=== PATIENT | male | born 1995 | race Hispanic/Latino ===

== ENCOUNTER 2020-12-19 18:00 | Emergency (ER) | payer SELFPAY ==
--- NOTE | 2020-12-19 21:07 | ER ---
Nurse's Notes [facility] Name: Juan Blandon Age: 25 yrs Sex: Male : 1995 Arrival Date: 12/19/2020 Time: 18:01 Bed 6 Private MD: Diagnosis: Bronchitis, not specified as acute or chronic;Acute upper respiratory infection, unspecified;Other specified fever Presentation: 12/19 19:46 Chief complaint: Patient states: Cough (dry) and sore throat began yesterday. Denies vg1 fever, NV. States had diarrhea yesterday. Also states Covid +. Coronavirus screen: Client denies travel out of the [place] in the last 14 days. Client presents with at least one sign or symptom that may indicate coronavirus-19. Standard/surgical mask placed on the client. Ebola Screen: Patient negative for fever greater than or equal to 101.5 degrees Fahrenheit, and additional compatible Ebola Virus Disease symptoms. Initial Sepsis Screen: Does the patient meet any 2 criteria? No. Patient's initial sepsis screen is negative. Does the patient have a suspected source of infection? No. Patient's initial sepsis screen is negative. Risk Assessment: Do you want to hurt yourself or someone else? Patient reports no desire to harm self or others. Onset of symptoms was December 18, 2020. 19:46 Method Of Arrival: Ambulatory vg 19:46 Acuity: MARLENE 4 vg1 Triage Assessment: 19:49 General: Appears in no apparent distress. comfortable, Behavior is calm, cooperative. vg1 Pain: Denies pain. EENT: Throat is reddened. Historical: - Allergies: 19:49 No Known Allergies; vg1 - Home Meds: 19:49 None [Active]; vg1 - PMHx: 19:49 None; vg1 - PSHx: 19:49 Tonsillectomy; vg1 - Immunization history:: Adult Immunizations up to date. - Social history:: Smoking status: Patient denies any tobacco usage or history of. Screenin:56 Abuse screen: Denies threats or abuse. Nutritional screening: No deficits noted. vg1 Tuberculosis screening: No symptoms or risk factors identified. Fall Risk No fall in past 12 months (0 pts). No secondary diagnosis (0 pts). No IV (0 pts). Ambulatory Aid- None/Bed Rest/Nurse Assist (0 pts). Gait- Normal/Bed Rest/Wheelchair (0 pts) Mental Status- Oriented to own ability (0 pts). Total Alvarez Fall Scale indicates No Risk (0-24 pts). Assessment: 19:56 Respiratory: Respiratory effort is. vg1 20:30 General: Appears in no apparent distress. comfortable, Behavior is calm, cooperative, jb4 appropriate for age. Pain: Denies pain. Neuro: Level of Consciousness is awake, alert, obeys commands, Oriented to time, situation. Cardiovascular: Patient's skin is warm and dry. Respiratory: Airway is patent Respiratory effort is even, unlabored, Respiratory pattern is regular, symmetrical. GI: No signs and/or symptoms were reported involving the gastrointestinal system. : No signs and/or symptoms were reported regarding the genitourinary system. EENT: No signs and/or symptoms were reported regarding the EENT system. Derm: Skin is intact, Skin is pink, warm \T\ dry. Musculoskeletal: Circulation, motion, and sensation intact. Range of motion: intact in all extremities. 21:34 Reassessment: Patient and/or family updated on plan of care and expected duration. Pain ea level reassessed. Patient is alert, oriented x 3, equal unlabored respirations, skin warm/dry/pink. Discharge instruction given to patient. Verbalized the understanding of instruction. [id number]. Vital Signs: 19:46 Pulse 105; Resp 18; Temp 97.7; Pulse Ox 100% ; Weight 117.93 kg; Height 5 ft. 9 in. vg1 (175.26 cm); Pain 0/10; 19:46 Body Mass Index 38.39 (117.93 kg, 175.26 cm) vg1 ED Course: 18:01 Patient arrived in ED. mr 19:49 Triage completed. vg1 19:56 Arm band placed on Patient placed in waiting room, Patient notified of wait time. vg1 19:56 COVID swab sent to lab. Flu and/or RSV swab sent to lab. Strep swab sent to lab. vg1 20:26 Parker Ochoa MD is Attending Physician. [facility] 20:28 Dalton Patrick RN is Primary Nurse. jb4 21:30 No provider procedures requiring assistance completed. Patient did not have IV access jb4 during this emergency room visit. Administered Medications: 21:30 Drug: Rocephin (cefTRIAXone) 1 grams Route: IM; Site: right deltoid; jb4 21:30 Follow up: Response: Medication administered at discharge. jb4 21:30 Drug: Zithromax (azithromycin) 500 mg Route: PO; jb4 21:30 Follow up: Response: Medication administered at discharge. jb4 Outcome: 21:06 Discharge ordered by . trenton 21:35 Discharged to home ambulatory, with family. herminio 21:35 Condition: stable 21:35 Discharge instructions given to patient, Instructed on discharge instructions, follow up and referral plans. medication usage, Demonstrated understanding of instructions, follow-up care, medications, Prescriptions given X 3. 21:35 Patient left the ED. ea Signatures: Parker Ochoa MD MD cha Rivera, Mary mr Bryson, James, RN RN jb4 Susan Carr, RN Kayley Tadeo ea RN RN vg1
--- NOTE | 2020-12-19 21:07 | EDPHYS ---
Physician Documentation [facility] Name: Juan Blandon Age: 25 yrs Sex: Male : 1995 Arrival Date: 12/19/2020 Time: 18:01 Bed 6 Private MD: ED Physician Parker Ochoa HPI: 12/19 20:58 This 25 yrs old Male presents to ER via Ambulatory with complaints of Cough, trenton Sore Throat. 20:58 The patient or guardian reports airway noise, cough, described as mild. Onset: The trenton symptoms/episode began/occurred 2 day(s) ago. Severity of symptoms: At their worst the symptoms were mild, in the emergency department the symptoms are unchanged. Modifying factors: The symptoms are alleviated by nothing. Associated signs and symptoms: The patient has no apparent associated signs or symptoms. The patient has not experienced similar symptoms in the past. Historical: - Allergies: 19:49 No Known Allergies; vg1 - Home Meds: 19:49 None [Active]; vg1 - PMHx: 19:49 None; vg1 - PSHx: 19:49 Tonsillectomy; vg1 - Immunization history:: Adult Immunizations up to date. - Social history:: Smoking status: Patient denies any tobacco usage or history of. ROS: 21:01 Constitutional: Negative for fever, chills, and weight loss, Eyes: Negative for injury, trenton pain, redness, and discharge, ENT: Negative for injury, pain, and discharge, Neck: Negative for injury, pain, and swelling, Cardiovascular: Negative for chest pain, palpitations, and edema, Abdomen/GI: Negative for abdominal pain, nausea, vomiting, diarrhea, and constipation, Back: Negative for injury and pain, : Negative for injury, bleeding, discharge, and swelling, MS/Extremity: Negative for injury and deformity, Skin: Negative for injury, rash, and discoloration, Neuro: Negative for headache, weakness, numbness, tingling, and seizure, Psych: Negative for depression, anxiety, suicide ideation, homicidal ideation, and hallucinations, Allergy/Immunology: Negative for hives, rash, and allergies, Endocrine: Negative for neck swelling, polydipsia, polyuria, polyphagia, and marked weight changes, Hematologic/Lymphatic: Negative for swollen nodes, abnormal bleeding, and unusual bruising. 21:01 Respiratory: Positive for cough, with no reported sputum. Exam: 21:01 Constitutional: This is a well developed, well nourished patient who is awake, alert, trenton and in no acute distress. Head/Face: Normocephalic, atraumatic. Eyes: Pupils equal round and reactive to light, extra-ocular motions intact. Lids and lashes normal. Conjunctiva and sclera are non-icteric and not injected. Cornea within normal limits. Periorbital areas with no swelling, redness, or edema. ENT: Nares patent. No nasal discharge, no septal abnormalities noted. Tympanic membranes are normal and external auditory canals are clear. Oropharynx with no redness, swelling, or masses, exudates, or evidence of obstruction, uvula midline. Mucous membranes moist. Neck: Trachea midline, no thyromegaly or masses palpated, and no cervical lymphadenopathy. Supple, full range of motion without nuchal rigidity, or vertebral point tenderness. No Meningismus. Chest/axilla: Normal chest wall appearance and motion. Nontender with no deformity. No lesions are appreciated. Cardiovascular: Regular rate and rhythm with a normal S1 and S2. No gallops, murmurs, or rubs. Normal PMI, no JVD. No pulse deficits. Respiratory: Lungs have equal breath sounds bilaterally, clear to auscultation and percussion. No rales, rhonchi or wheezes noted. No increased work of breathing, no retractions or nasal flaring. Abdomen/GI: Soft, non-tender, with normal bowel sounds. No distension or tympany. No guarding or rebound. No evidence of tenderness throughout. Back: No spinal tenderness. No costovertebral tenderness. Full range of motion. Skin: Warm, dry with normal turgor. Normal color with no rashes, no lesions, and no evidence of cellulitis. MS/ Extremity: Pulses equal, no cyanosis. Neurovascular intact. Full, normal range of motion. Neuro: Awake and alert, GCS 15, oriented to person, place, time, and situation. Cranial nerves II-XII grossly intact. Motor strength 5/5 in all extremities. Sensory grossly intact. Cerebellar exam normal. Normal gait. Psych: Awake, alert, with orientation to person, place and time. Behavior, mood, and affect are within normal limits. Vital Signs: 19:46 Pulse 105; Resp 18; Temp 97.7; Pulse Ox 100% ; Weight 117.93 kg; Height 5 ft. 9 in. vg1 (175.26 cm); Pain 0/10; 19:46 Body Mass Index 38.39 (117.93 kg, 175.26 cm) vg1 MDM: 20:26 Patient medically screened. [facility] 21:03 Differential diagnosis: bronchitis, flu, URI. Antibiotic administration: The patient is trenton discharged and will get outpatient antibiotics, Zithromax. Differential Diagnosis: Bronchitis Influenza Upper Respiratory Infection Sinusitis Pharyngitis Viral Syndrome Pneumonia. Data reviewed: vital signs, nurses notes. Data interpreted: roll filler: not applicable for this patient encounter. rate is 105 beats/min, rhythm is regular, Pulse oximetry: is not applicable for this patient encounter. Counseling: I had a detailed discussion with the patient and/or guardian regarding: the historical points, exam findings, and any diagnostic results supporting the discharge/admit diagnosis, lab results, radiology results, the need for outpatient follow up, for definitive care, a family practitioner. 12/19 19:52 Order name: Strep vg1 12/19 19:52 Order name: Flu vg1 Administered Medications: 21:30 Drug: Rocephin (cefTRIAXone) 1 grams Route: IM; Site: right deltoid; 4 21:30 Follow up: Response: Medication administered at discharge. [facility] 21:30 Drug: Zithromax (azithromycin) 500 mg Route: PO; jb4 21:30 Follow up: Response: Medication administered at discharge. jb4 Disposition Summary: 12/19/20 21:06 Discharge Ordered Location: Home [facility] Problem: new trenton Symptoms: have improved trenton Condition: Stable trenton Diagnosis - Bronchitis, not specified as acute or chronic trenton - Acute upper respiratory infection, unspecified trenton - Other specified fever trenton Followup: trenton - With: Private Physician - When: 2 - 3 days - Reason: Recheck today's complaints, Continuance of care, Re-evaluation by your physician Discharge Instructions: - Discharge Summary Sheet trenton - Acute Bronchitis, Adult trenton - Upper Respiratory Infection, Adult trenton - Cool Mist Vaporizer trenton - Upper Respiratory Infection, Adult, [id number] trenton - Cough, Adult, [id number] trenton - Cough, Adult trenton Forms: - Medication Reconciliation Form trenton - Thank You Letter trenton - Antibiotic Education trenton - Prescription Opioid Use trenton Prescriptions: - Bromfed DM 2-30-10 mg/5 mL Oral syrup - take 10 milliliter by ORAL route every 6 hours; 180 milliliter; Refills: 0, [facility] Product Selection Permitted - Medrol (Maik) 4 mg Oral Tablets, Dose Pack - take 1 tablet by ORAL route as directed - follow package instructions; 1 [facility] packet; Refills: 0, Product Selection Permitted - Zithromax 500 mg Oral Tablet - take 1 tablet by ORAL route once daily for 5 days; 5 tablet; Refills: 0, [facility] Product Selection Permitted Signatures: Dispatcher [employer] EDParker Torres MD MD cha Bryson, James, RN RN jb4 Kayley Leon RN RN vg1 Corrections: (The following items were deleted from the chart) 21:24 19:53 CORONAVIRUS+Z ordered. [facility]
[2020-12-19] MEDS ORDERED: CEFTRIAXONE 1000 MG/VIAL ONE (21:34)
[2020-12-19] MEDS ORDERED: AZITHROMYCIN 250 MG TAB ONE (21:34)
[2020-12-19] MEDS ORDERED: WATER FOR INJ,STERILE 10 ML ONE (21:35)
[2020-12-19 21:42] VITALS: TEMP 97.7; O2SAT 100
== END 2020-12-19 21:35 | disposition home or self-care (01) ==
LOC: ER 18:00
DX: U07.1 COVID-19 (principal); J40 Bronchitis, not specified as acute or chronic
CPT/HCPCS: 87070; 87081; 87804; U0003

== ENCOUNTER 2020-12-24 16:58 | Emergency (ER) | payer SELFPAY ==
--- NOTE | 2020-12-24 18:16 | RAD REPORT ---
EXAM DESCRIPTION: RAD - Chest Pa And Lat (2 Views) - 12/24/2020 5:59 pm CLINICAL HISTORY: SOB COMPARISON: No comparisons FINDINGS: There are some scattered bilateral and basilar opacities. The heart size is within normal limits.No acute osseous abnormality. No significant pleural effusions or pneumothorax. IMPRESSION: Scattered ill-defined opacities may represent mild multifocal pneumonia including Covid- 19.
--- NOTE | 2020-12-24 23:52 | ER ---
Nurse's Notes [facility] Name: Juan Blandon Age: 25 yrs Sex: Male : 1995 Arrival Date: 12/24/2020 Time: 17:00 Bed 9 Private MD: Diagnosis: Covid pneumonia Presentation: 12/24 17:25 Chief complaint: Patient states: SOB, coughing x 1 day. Positive for COVID 8/2. Chief kg complaint:. Coronavirus screen: Client denies travel out of the [place] in the last 14 days. At this time, unable to obtain information related to travel outside the [place] Client presents with at least one sign or symptom that may indicate coronavirus-19. Standard/surgical mask placed on the client. Provider contacted for isolation considerations. Client reports previous positive COVID test result. Date of collection: December 19, 2020. Ebola Screen: Patient negative for fever greater than or equal to 101.5 degrees Fahrenheit, and additional compatible Ebola Virus Disease symptoms Patient denies exposure to infectious person. Patient denies travel to an Ebola-affected area in the 21 days before illness onset. Initial Sepsis Screen: Does the patient meet any 2 criteria? No. Patient's initial sepsis screen is negative. Risk Assessment: Do you want to hurt yourself or someone else? Patient reports no desire to harm self or others. Onset of symptoms was December 23, 2020. 17:25 Method Of Arrival: Ambulatory kg 17:25 Acuity: MARLENE 4 kg 23:44 Initial Sepsis Screen: Does the patient have a suspected source of infection? Yes: No. ms4 Patient's initial sepsis screen is negative. Triage Assessment: 17:27 General: Appears in no apparent distress. Behavior is calm, cooperative, appropriate kg for age, quiet. Pain: Complains of pain in chest Pain currently is 8 out of 10 on a pain scale. at worst was 8 out of 10 on a pain scale. level that patient reports is acceptable is 3 out of 10 on a pain scale. Quality of pain is described as aching, sharp, stabbing. Respiratory: Reports shortness of breath Onset: The symptoms/episode began/occurred yesterday, the patient has mild shortness of breath. Historical: - Allergies: 17:27 No Known Allergies; kg - Home Meds: 17:27 azithromycin 1 gram Oral pack [Active]; kg - PMHx: 17:27 None; kg - PSHx: 17:27 Tonsillectomy; kg - Immunization history:: Adult Immunizations not up to date, Client reports having NOT received the Covid vaccine. - Social history:: Smoking status: Patient denies any tobacco usage or history of. Screenin:44 Abuse screen: Denies threats or abuse. Denies injuries from another. Nutritional ms4 screening: No deficits noted. Tuberculosis screening: No symptoms or risk factors identified. Fall Risk None identified. Assessment: 23:44 Reassessment: Patient appears in no apparent distress at this time. No changes from ms4 previously documented assessment. Patient and/or family updated on plan of care and expected duration. Pain level reassessed. General: Appears in no apparent distress. Pain: Denies pain. Neuro: No deficits noted. Cardiovascular: No deficits noted. Rhythm is regular. Respiratory: No deficits noted. Airway is patent Respiratory effort is even, unlabored, Breath sounds are clear bilaterally. Vital Signs: 17:25 BP 111 / 71; Pulse 96; Resp 18; Temp 99.6(O); Pulse Ox 94% ; Weight 127.01 kg; Height 5 kg ft. 7 in. (170.18 cm); Pain 8/10; 23:43 BP 122 / 78; Pulse 100; Resp 20; Pulse Ox 98% ; Pain 0/10; ms4 17:25 Body Mass Index 43.85 (127.01 kg, 170.18 cm) kg ED Course: 17:00 Patient arrived in ED. ds1 17:27 Triage completed. kg 17:59 XRAY Chest Pa And Lat (2 Views) In Process Unspecified. EDMS 23:34 Nghia Turcios MD is Attending Physician. pkl 23:44 Patient has correct armband on for positive identification. ms4 23:44 No provider procedures requiring assistance completed. Patient did not have IV access ms4 during this emergency room visit. 12/25 00:05 Arm band placed on right wrist. ms4 Administered Medications: 12/24 23:57 Drug: Decadron (dexamethasone) 10 mg Route: IM; Site: right deltoid; ms4 23:57 Follow up: Response: No adverse reaction ms4 Outcome: 23:52 Discharge ordered by . pkl 12/25 00:05 Discharged to home ambulatory. ms4 Condition: good Discharge instructions given to patient, Instructed on discharge instructions, follow up and referral plans. Demonstrated understanding of instructions, follow-up care, medications, Prescriptions given X 1. 00:06 Patient left the ED. ms4 Signatures: Dispatcher [employer] EDNghia Bledsoe MD MD pkl Sanford, Demi ds1 Denice Mclaughlin RN RN kg Lilian Turner RN RN ms4
--- NOTE | 2020-12-24 23:53 | EDPHYS ---
Physician Documentation [facility] Name: Juan Blandon Age: 25 yrs Sex: Male : 1995 Arrival Date: 12/24/2020 Time: 17:00 Bed 9 Private MD: ED Physician Nghia Turcios HPI: 12/24 23:44 This 25 yrs old Male presents to ER via Ambulatory with complaints of pkl Shortness Of Breath - Painful Cough, COVID+. 23:44 The patient has shortness of breath at rest. Onset: The symptoms/episode began/occurred pkl 1 week(s) ago. Associated signs and symptoms: Pertinent positives: non-productive cough. Patient seen in this ER on 12/19/20 and tested positive for Covid 19. Historical: - Allergies: 17:27 No Known Allergies; kg - Home Meds: 17:27 azithromycin 1 gram Oral pack [Active]; kg - PMHx: 17:27 None; kg - PSHx: 17:27 Tonsillectomy; kg - Immunization history:: Adult Immunizations not up to date, Client reports having NOT received the Covid vaccine. - Social history:: Smoking status: Patient denies any tobacco usage or history of. ROS: 23:44 Eyes: Negative for injury, pain, redness, and discharge, ENT: Negative for injury, pkl pain, and discharge, Neck: Negative for injury, pain, and swelling, Cardiovascular: Negative for chest pain, palpitations, and edema. 23:44 Respiratory: Positive for cough, with no reported sputum. 23:44 Abdomen/GI: Negative for abdominal pain, nausea, vomiting, and diarrhea. 23:44 Back: Negative for acute changes. 23:44 : Negative for urinary symptoms. 23:44 MS/extremity: Negative for acute changes. 23:44 Skin: Negative for rash. 23:44 Neuro: Negative for altered mental status, loss of consciousness. Exam: 23:44 Head/Face: Normocephalic, atraumatic. Eyes: Pupils equal round and reactive to light, pkl extra-ocular motions intact. Lids and lashes normal. Conjunctiva and sclera are non-icteric and not injected. Cornea within normal limits. Periorbital areas with no swelling, redness, or edema. ENT: Nares patent. No nasal discharge, no septal abnormalities noted. Tympanic membranes are normal and external auditory canals are clear. Oropharynx with no redness, swelling, or masses, exudates, or evidence of obstruction, uvula midline. Mucous membranes moist. Neck: Trachea midline, no thyromegaly or masses palpated, and no cervical lymphadenopathy. Supple, full range of motion without nuchal rigidity, or vertebral point tenderness. No Meningismus. Chest/axilla: Normal chest wall appearance and motion. Nontender with no deformity. No lesions are appreciated. Cardiovascular: Regular rate and rhythm with a normal S1 and S2. No gallops, murmurs, or rubs. Normal PMI, no JVD. No pulse deficits. 23:44 Respiratory: the patient does not display signs of respiratory distress, Respirations: normal, Breath sounds: rales, that are mild, are scattered. 23:44 Abdomen/GI: Bowel sounds: normal, Palpation: abdomen is soft and non-tender, in all quadrants. 23:44 Back: Exam negative for acute changes. 23:44 : Exam negative for acute changes. 23:44 Musculoskeletal/extremity: Exam is negative for acute changes. 23:44 Skin: Exam negative for rash. 23:44 Neuro: Orientation: is normal, Mentation: is normal, Cranial nerves: grossly normal, Motor: is normal. Vital Signs: 17:25 BP 111 / 71; Pulse 96; Resp 18; Temp 99.6(O); Pulse Ox 94% ; Weight 127.01 kg; Height 5 kg ft. 7 in. (170.18 cm); Pain 8/10; 23:43 BP 122 / 78; Pulse 100; Resp 20; Pulse Ox 98% ; Pain 0/10; ms4 17:25 Body Mass Index 43.85 (127.01 kg, 170.18 cm) kg MDM: 23:35 Patient medically screened. pkl 23:48 Data reviewed: vital signs, nurses notes. ED course: Discussed X' rays result with pkl patient. Advised to check O2 sats with pulse oximeter daily and return to ER for evaluation if O2 sat is less than 92%. Patient understood instruction. 12/24 17:29 Order name: XRAY Chest Pa And Lat (2 Views); Complete Time: 22:38 kg 12/24 23:16 Interpretation: Report reviewed. cp Administered Medications: 23:57 Drug: Decadron (dexamethasone) 10 mg Route: IM; Site: right deltoid; ms4 23:57 Follow up: Response: No adverse reaction ms4 Disposition Summary: 12/24/20 23:52 Discharge Ordered Location: Home pkl Problem: new pkl Symptoms: are unchanged pkl Condition: Stable pkl Diagnosis - Covid pneumonia pkl Followup: pkl - With: Private Physician - When: 2 - 3 days - Reason: Re-evaluation by your physician Discharge Instructions: - Discharge Summary Sheet pkl Forms: - Medication Reconciliation Form pkl - Thank You Letter pkl - Antibiotic Education pkl - Prescription Opioid Use pkl Prescriptions: - Zithromax Z-Maik 250 mg Oral Tablet - take 1 tablet by ORAL route as directed for 5 days Day 1 - take two (2) tablets pkl one time. Day 2, 3, 4 , 5 take one (1) tablet once daily.; 6 tablet; Refills: 0, Product Selection Permitted Signatures: Dispatcher [employer] EDNghia Bledsoe MD MD pkl Parker Baez PA PA cp Graham, Kristen, HUMAIRA RN kg Lilian Turner RN RN ms4
[2020-12-25] MEDS ORDERED: dexAMETHasone 10 MG/ML VIAL ONE (00:15)
[2020-12-25 00:46] VITALS: TEMP 99.6
[2020-12-25 00:48] VITALS: BP 122/78; O2SAT 98
== END 2020-12-25 00:06 | disposition home or self-care (01) ==
LOC: ER 16:58
DX: U07.1 COVID-19 (principal); J12.82 Pneumonia due to coronavirus disease 2019
CPT/HCPCS: 71046; 96372; 99283